=== PATIENT | female | born 1975 | race Caucasian/White ===

== ENCOUNTER 2016-12-21 00:02 | Emergency (ER) | payer MEDICAID ==
[~2016-12-21] VITALS: Ht 157.5 cm; Wt 95.0 kg
[2016-12-21 00:45] VITALS: Ht 157.5 cm; Wt 95.0 kg
[2016-12-21] MEDS ORDERED: ACET500C5 PO ×2 (01:58→03:51)
--- NOTE | 2016-12-21 01:59 | ERD ---
ER Documentation Chief Complaint Date/Time DATE: 12/21/16 TIME: 01:57 Chief Complaint Right leg pain and 21 weeks HPI 41-year-old female presents here in emergency department for complaints of right hip pain radiating to the right lower leg started today. Patient described pain as throbbing pain, 8/10 scale, is worse upon movement and walking. Patient is 21 weeks prior, 4 para 2 1. Patient denies any abdominal pain or cramping. Patient denies hematuria or dysuria. Patient denies any vaginal bleeding. Patient took Tylenol for pain with mild relief. Patient denies any fever or chills. She denies any trauma on affected area. Patient denies any swelling on the right lower leg. ROS All systems reviewed and are negative except as per history of present illness. Medications Home Meds Reported Medications Acetaminophen* (Tylophen*) Unknown Strength Capsule, PO Q8H Y for PAIN AND OR ELEVATED TEMP, #20 CAP 12/21/16 Allergies Allergies: Coded Allergies: No Known Allergy (Unverified , 12/21/16) PMhx/Soc Medical and Surgical Hx: pt denies Medical Hx, pt denies Surgical Hx FmHx Family History: No coronary disease, No diabetes, No other Physical Exam Vitals Vital Signs Date Time Temp Pulse Resp B/P Pulse Ox O2 Delivery O2 Flow Rate FiO2 12/21/16 00:45 98.3 86 18 134/62 97 Physical Exam GENERAL: The patient is well developed and appropriate for usual state of health, in no apparent distress. CHEST: Clear to auscultation bilaterally. There are no rales, wheezes or rhonchi. HEART: Regular rate and rhythm. No murmurs, clicks, rubs or gallops. No S3 or S4. ABDOMEN: Soft, nontender and nondistended. Good bowel sounds. No rebound or guarding. No gross peritonitis. No gross organomegaly or masses. No Abbasi sign or McBurney point tenderness. BACK: No midline or flank tenderness. EXTREMITIES: Tenderness on palpation on the right hip area, with limitation of movement because of the pain, no lower leg swelling noted, no edema noted on my no redness noted. Equal pulses bilaterally. Full range of motion of other joints of the body. Grossly neurovascularly intact. NEURO: Alert and oriented. Cranial nerves 2-12 intact. Motor strength in all 4 extremities with 5/5 strength. Sensation grossly intact. Normal speech and gait. SKIN: There is no apparent rash or petechia. The skin is warm and dry. HEMATOLOGIC AND LYMPHATIC: There is no evidence of excessive bruising or lymphedema. No gross cervical, axillary, or inguinal lymphadenopathy. Result Diagram: 12/21/16 01512/21/16 0150 Results 24 hrs Laboratory Tests Test 12/21/16 01:50 White Blood Count 11.110^3/ul Red Blood Count 4.1910^6/ul Hemoglobin 11.9g/dl Hematocrit 36.9% Mean Corpuscular Volume 88.1fl Mean Corpuscular Hemoglobin 28.4pg Mean Corpuscular Hemoglobin Concent 32.2g/dl Red Cell Distribution Width 13.0% Platelet Count 40702^3/UL Mean Platelet Volume 9.7fl Neutrophils % 69.7% Lymphocytes % 20.9% Monocytes % 7.2% Eosinophils % 1.4% Basophils % 0.3% Nucleated Red Blood Cells % 0.0/100WBC Neutrophils # 7.710^3/ul Lymphocytes # 2.310^3/ul Monocytes # 0.810^3/ul Eosinophils # 0.210^3/ul Basophils # 0.010^3/ul Nucleated Red Blood Cells # 0.010^3/ul Urine Color LT. YELLOW Urine Clarity CLEAR Urine pH 5.5 Urine Specific [place] 1.010 Urine Ketones NEGATIVE Urine Nitrite NEGATIVE Urine Bilirubin NEGATIVE Urine Urobilinogen 0.2 E.U./dL Urine Leukocyte Esterase 1+ Urine Microscopic RBC 0-2/HPF Urine Microscopic WBC 5-10/HPF Urine Squamous Epithelial Cells MANY Urine Bacteria MODERATE Urine Hemoglobin NEGATIVE Urine Glucose NEGATIVE% Urine Total Protein NEGATIVE Sodium Level 137mmol/L Potassium Level 4.5mmol/L Chloride Level 105mmol/L Carbon Dioxide Level 23mmol/L Anion Gap 14 Blood Urea Nitrogen 9mg/dl Creatinine 0.51mg/dl Glucose Level 122mg/dl Calcium Level 9.5mg/dl Total Bilirubin 0.2mg/dl Direct Bilirubin 0.00mg/dl Indirect Bilirubin 0.2mg/dl Aspartate Amino Transf (AST/SGOT) 25IU/L Alanine Aminotransferase (ALT/SGPT) 44IU/L Alkaline Phosphatase 123IU/L Total Protein 7.4g/dl Albumin 3.7g/dl Globulin 3.70g/dl Albumin/Globulin Ratio 1.00 Procedures/MDM Medical Decision Making: Patient's pain is most likely consistent with a hip strain, pelvic strain can be from the growing . Patient is also having urinary tract infection and will be treated. No DVT noted.. There is no suspicion for neurovascular compromise. Patient has intact sensation and circulation of the affected extremity. There is low suspicion for septic arthritis. Patient does not have any fever. X-ray of affected area not indicated since patient is and did not have any injury on affected area. Disposition: Home. Patient is given prescription for Tylenol for pain. Keflex for UTI Patient was advised to elevate the affected area and apply ice on affected area. Patient was advised that if symptoms are worse, numbness, tingling, high fever, unable to move joint, worsening symptoms, to return to emergency department immediately. Otherwise, patient is advised to follow up with the primary care doctor in 5-7 days for reevaluation of symptoms. Departure Diagnosis: Primary Impression: Pain of right leg Additional Impression: UTI (urinary tract infection) Urinary tract infection type: acute cystitis Hematuria presence: without hematuria Qualified Code: N30.00 - Acute cystitis without hematuria Condition: Stable Patient Instructions: Hip Strain, Understanding Urinary Tract Infections (UTIs) Additional Instructions: Patient is given prescription for Tylenol for pain. Keflex for UTI Patient was advised to elevate the affected area and apply ice on affected area. Patient was advised that if symptoms are worse, numbness, tingling, high fever, unable to move joint, worsening symptoms, to return to emergency department immediately. Otherwise, patient is advised to follow up with the primary care doctor in 5-7 days for reevaluation of symptoms. JEREMY HENNING NP Dec 21, 2016 01:59
--- NOTE | 2016-12-21 02:02 | RADRPT ---
PROCEDURE: US right lower extremity venous Doppler CLINICAL INDICATION: Right leg swelling TECHNIQUE: Multiple sonographic images of the right lower extremity deep venous system was obtaine d utilizing grayscale, color-flow, compressive sonography and Doppler imaging with augmentation. COMPARISON: No pertinent prior examinations were submitted for comparison. FINDINGS: There is normal compressibility and flow within the right common femoral, superficial femoral, popli teal, and peroneal veins. IMPRESSION: No sonographic evidence for deep venous thrombosis. RPTAT: HIKT .Clarke Fontaine MD, MD Date Time Electronically viewed and signed by .Clarke Fontaine MD, MD on 12/21/2016 02:02 .T/
[2016-12-21 02:14] LABS: ADD SCAN DIFF NO
[2016-12-21 02:17] LABS: BASOPHILS % 0.3 % (0.0-2.0); EOSINOPHILS # 0.2 10^3/ul (0.0-0.5); EOSINOPHILS % 1.4 % (0.0-7.0); HEMATOCRIT 36.9 % (37.0-47.0); HEMOGLOBIN 11.9 g/dl (12.0-16.0); LYMPHOCYTES # 2.3 10^3/ul (0.8-2.9); LYMPHOCYTES % 20.9 % (15.0-51.0); MEAN CORPUSCULAR HEMOGLOBIN 28.4 pg (29.0-33.0); MEAN CORPUSCULAR HGB CONC 32.2 g/dl (32.0-37.0); MEAN CORPUSCULAR VOLUME 88.1 fl (82.0-101.0); MEAN PLATELET VOLUME 9.7 fl (7.4-10.4); MONOCYTE # 0.8 10^3/ul (0.3-0.9); MONOCYTES % 7.2 % (0.0-11.0); NEUTROPHIL # 7.7 10^3/ul (1.6-7.5); NEUTROPHILS % 69.7 % (39.0-77.0); PLATELET COUNT 364 10^3/UL (140-415); RED BLOOD COUNT 4.19 10^6/ul (4.20-5.40); WHITE BLOOD COUNT 11.1 10^3/ul (4.8-10.8)
[2016-12-21 02:30] LABS: ALBUMIN 3.7 g/dl (3.3-4.9); POTASSIUM 4.5 mmol/L (3.5-5.1)
[2016-12-21 02:32] LABS: BILIRUBIN,INDIRECT 0.2 mg/dl (0-1.1); BILIRUBIN,TOTAL 0.2 mg/dl (0.2-1.3); CREATININE 0.51 mg/dl (0.44-1.00)
[2016-12-21 02:33] LABS: CALCIUM 9.5 mg/dl (8.4-10.2); TOTAL PROTEIN 7.4 g/dl (6.1-8.1)
[2016-12-21 03:22] LABS: ADD UMIC YES; URINE BILIRUBIN (Dip) NEGATIVE (NEGATIVE); URINE BLOOD (Dip) NEGATIVE (NEGATIVE); URINE COLOR LT. YELLOW (YELLOW); URINE GLUCOSE (Dip) NEGATIVE (NEGATIVE); URINE KETONES (Dip) NEGATIVE (NEGATIVE); URINE LEUKOCYTE ESTERASE (Dip) 1+ (NEGATIVE); URINE NITRITE (Dip) NEGATIVE (NEGATIVE); URINE TOTAL PROTEIN (Dip) NEGATIVE (NEGATIVE); URINE UROBILINOGEN (Dip) 0.2 E.U./dL (0.1-1.0)
[2016-12-21 03:38] LABS: BACTERIA,URINE MODERATE; SQUAMOUS EPITHELIAL CELL,UR MANY; URINE RBCS 0-2 /HPF (0)
[2016-12-21] MEDS ORDERED: CEPH-443 PO (03:51)
[2016-12-21 04:05] VITALS: BP 117/58; PULSE 82; RESP 18; TEMP 98
== END 2016-12-21 04:06 | disposition home or self-care (01) ==
LOC: FTE 00:02
DX: O99.89 Other specified diseases and conditions complicating pregnancy, childbirth and the puerperium (principal); M79.604 Pain in right leg; O23.42 Unspecified infection of urinary tract in pregnancy, second trimester; Z53.21 Procedure and treatment not carried out due to patient leaving prior to being seen by health care provider
CPT/HCPCS: 80053; 81001; 81003; 85025; 93971; Z7502

== ENCOUNTER 2017-01-01 21:00 | Emergency (ER) | payer MEDICAID ==
[~2017-01-01] VITALS: Wt 94.0 kg
[~2017-01-01 21:00] MED LIST: ACET500C5 PO; CEPH-443 PO
[2017-01-01] MEDS ORDERED: LORA-186 PO (21:41)
[2017-01-01] MEDS ORDERED: AZIT250T94 PO (21:41)
[2017-01-01] MEDS ORDERED: ACET-2047 PO (21:41)
--- NOTE | 2017-01-01 21:47 | ERD ---
ER Documentation Chief Complaint Date/Time DATE: 01/01/17 TIME: 21:44 Chief Complaint cough x 3 days. 23 weeks , cleared by ob HPI This is a 41-year-old female A1 who is 23 weeks presenting to the emergency department and was cleared by OB upstairs presenting complaining of cough and congestion for the past 3 days. Patient states he tried Robitussin-DM without any relief. She rates as moderate in severity. Denies any vomiting, diarrhea, abdominal pain, shortness of breath ROS All systems reviewed and are negative except as per history of present illness. Medications Home Meds Active Scripts Azithromycin* (Zithromax*) 250 Mg Tablet, 250 MG PO .ZPACK DIRECTED, #6 TAB TAKE 500 MG (2 TABS) THE FIRST DAY THEN 250 MG (1 TAB) DAYS 2-5 Prov:KEVIN ARAGON PA-C 01/01/17 Acetaminophen* (Acetaminophen*) 650 Mg Tablet, 650 MG PO Q6H Y for PAIN AND OR ELEVATED TEMP, #30 TAB Prov:KEVIN ARAGON PA-C 01/01/17 Loratadine* (Claritin*) 10 Mg Tablet, 10 MG PO DAILY, #30 TAB Prov:KEVIN ARAGON PA-C 01/01/17 Discontinued Reported Medications Acetaminophen* (Tylophen*) Unknown Strength Capsule, PO Q8H Y for PAIN AND OR ELEVATED TEMP, #20 CAP 12/21/16 Discontinued Scripts Cephalexin* (Keflex*) 500 Mg Capsule, 500 MG PO QID for 7 Days, CAP Prov:JEREMY HENNING NP 12/21/16 Acetaminophen* (Tylophen*) 500 Mg Capsule, 1 CAP PO Q6H Y for PAIN AND OR ELEVATED TEMP, #20 CAP Prov:JEREMY HENNING NP 12/21/16 Allergies Allergies: Coded Allergies: No Known Allergy (Unverified , 01/01/17) PMhx/Soc Hx Alcohol Use: No Hx Substance Use: No Hx Tobacco Use: No Physical Exam Vitals Vital Signs Date Time Temp Pulse Resp B/P Pulse Ox O2 Delivery O2 Flow Rate FiO2 01/01/17 21:08 99.1 80 20 141/71 99 Physical Exam GENERAL: well-developed/well-nourished, in no apparent distress, non-toxic appearing HEAD: NC/AT, no swelling noted in frontal or maxillary areas EARS: bilateral tympanic membrane is intact without erythema or effusion NARES: rhinorrhea and congested THROAT: oropharynx nonerythematous without exudates, no tonsil enlargement, post nasal drip EYES: Conjunctiva normal NECK: Supple, no lymphadenopathy PULM: CTA bilaterally, no rales, rhonchi, or wheezing heard CV: Normal S1S2, RRR, good capillary refill GI: Soft, non-distended, normal bowel sounds, non-tender BACK: No midline tenderness, no masses EXT No clubbing, cyanosis, or edema NEURO: Alert and Orientated SKIN: Intact, normal turgor PSYCH: Normal mood and mentation Procedures/MDM This is a A1 41-year-old female presenting to the emergency department who is 23 weeks who was cleared by OB complaining of cough and congestion for the past 3 days. This is likely a viral upper respiratory infection. There was no evidence of pneumonia, strep pharyngitis, otitis media. Patient's lungs are clear all station bilaterally. Patient had a concern for the baby and wanted to get treated for possible pneumonia, I have discussed with her that this is likely a viral upper respiratory infection however I have given her a prescription for Z-Michel and I have told her to take it if she gets any worse tomorrow. A prescription for Claritin, Z-Michel, Tylenol was provided. Discussed return to the ER for any worsening symptoms. She understands and agrees with this plan Departure Diagnosis: Primary Impression: URI (upper respiratory infection) Condition: Stable Patient Instructions: Preventing Common Respiratory Infections, Uri, Viral, No Abx (Adult) Additional Instructions: FOLLOW UP WITH YOUR PRIMARY CARE PHYSICIAN TOMORROW.Return to this facility if you are not improving as expected. Take all medicines as directed. Return to this facility if you are not improving as expected. KEVIN ARAGON PA-C Jan 01, 2017 21:46
== END 2017-01-01 21:42 | disposition home or self-care (01) ==
LOC: E/R 21:00
DX: O99.512 Diseases of the respiratory system complicating pregnancy, second trimester (principal); J06.9 Acute upper respiratory infection, unspecified; Z3A.23 23 weeks gestation of pregnancy
CPT/HCPCS: 99283

== ENCOUNTER 2017-03-26 18:11 | Outpatient (CLI) | payer MEDICAID ==
--- NOTE | 2017-01-02 06:27 | PN ---
Date/Time of Note Date/Time of Note DATE: 01/02/17 TIME: 06:23 OB Subjective Subjective Subjective 41 Year-old with SIUP at 23 1/7 weks presents with a chief complaint of cough, chest and ear pain for 5 days. She has been receiving her care with Randy. She states good movement. She denies nausea, vomiting, shortness of breath, and abdominal pain between contractions, headache, visual changes, vaginal bleeding or LOF. OB Objective Objective Objective General: Patient appears well, alert and oriented, NAD, appropriate mood and affect ABD: gravid, soft, non-tender. Back: No CVA tenderness (B/L) LE: No clubbing, cyanosis, edema, thigh or calf tenderness bilaterally FHT: 140 bpm , moderate variability with acceleration, no deceleration-category I Contractions: None OB Assessment/Plan Other plan: 41 Year-old with SIUP at 23 1/7 weks with URTI - FHR: No sign of metabolic acidosis- Category I - Continuous EFM, toco - Contractions: None. - Reactive NST. - Symptoms and sign of labor, preeclampsia, kick count discussed with patient, she voiced understanding. All of her questions answered. - Patient was transfered to ER for furthe evaluation. Then I would like patient to have close follow-up with her primary physician or outpatient clinic in 1-2 days or return to the ER for worsening symptoms or any other urgent concerns. PATRICIA SMITH Jan 02, 2017 06:27
[~2017-03-26] VITALS: Ht 157.5 cm; Wt 98.6 kg
[~2017-03-26 18:11] MED LIST changes: +ACET-2047 PO; -ACET500C5 PO; +AZIT250T94 PO; -CEPH-443 PO; +LORA-186 PO
[2017-03-26 18:29] VITALS: Ht 157.5 cm; Wt 98.6 kg
[2017-03-26 18:30] VITALS: BP 138/71; PULSE 82; RESP 20
[2017-03-26 18:48] LABS: ADD UMIC YES; UR ASCORBIC ACID NEGATIVE (NEGATIVE); UR BACTERIA FEW /HPF (NONE SEEN); UR BILIRUBIN (Dip) NEGATIVE (NEGATIVE); UR BLOOD (Dip) NEGATIVE (NEGATIVE); UR CLARITY CLEAR (CLEAR); UR COLOR YELLOW (YELLOW); UR GLUCOSE (Dip) NEGATIVE (NEGATIVE); UR KETONES (Dip) NEGATIVE (NEGATIVE); UR LEUKOCYTE ESTERASE (Dip) 2+ Leu/ul (NEGATIVE); UR NITRITE (Dip) NEGATIVE (NEGATIVE); UR RBC 1 /HPF (0-5); UR SPECIFIC GRAVITY (Dip) 1.012 (1.003-1.030); UR SQUAMOUS EPITHELIAL CELL FEW /HPF (FEW); UR TOTAL PROTEIN (Dip) NEGATIVE (NEGATIVE); UR UROBILINOGEN (Dip) NEGATIVE (NEGATIVE)
[2017-03-26 19:22] LABS: ADD SCAN DIFF NO
[2017-03-26 19:23] LABS: BASOPHILS % 0.3 % (0.0-2.0); EOSINOPHILS # 0.1 10^3/ul (0.0-0.5); EOSINOPHILS % 1.8 % (0.0-7.0); HEMATOCRIT 32.8 % (37.0-47.0); HEMOGLOBIN 11.2 g/dl (12.0-16.0); LYMPHOCYTES % 27.1 % (15.0-51.0); MEAN CORPUSCULAR HEMOGLOBIN 28.4 pg (29.0-33.0); MEAN CORPUSCULAR HGB CONC 34.1 g/dl (32.0-37.0); MEAN CORPUSCULAR VOLUME 83.2 fl (82.0-101.0); MEAN PLATELET VOLUME 10.3 fl (7.4-10.4); MONOCYTE # 0.7 10^3/ul (0.3-0.9); MONOCYTES % 9.4 % (0.0-11.0); NEUTROPHIL # 4.4 10^3/ul (1.6-7.5); PLATELET COUNT 294 10^3/UL (140-415); RED BLOOD COUNT 3.94 10^6/ul (4.20-5.40); RED CELL DISTRIBUTION WIDTH 14.8 % (11.5-14.5); WHITE BLOOD COUNT 7.3 10^3/ul (4.8-10.8)
--- NOTE | 2017-03-26 19:31 | RADRPT ---
PROCEDURE: US OB biophysical profile. CLINICAL INDICATION: evaluation TECHNIQUE: Multiple sonographic images of the pelvis were obtained. The images were reviewed on a PACS workstation. COMPARISON: No prior studies are available for comparison. FINDINGS: There is a single viable intrauterine gestation. Cardiac activity is present with 168 beats per min sherrie. There is a vertex presentation. The placenta is posterior. There is no evidence of placental abruption. There is a normal amount of amniotic fluid with an VICTORINO = 14.6 cm. Biophysical profile: movement 2/2 tone 2/2. breathing 2/2 VICTORINO 2/2 Total 04/24 RPTAT: AA . IMPRESSION: Normal biophysical profile. Normal VICTORINO. Physician Naa Date Time Electronically viewed and signed by Physician Naa on 03/26/2017 19:31 /
--- NOTE | 2017-03-26 19:31 | RADRPT ---
PROCEDURE: Obstetrical ultrasound CLINICAL INDICATION: LABOR, pain TECHNIQUE: Multiple sonographic images of the pelvis were obtained. The images were reviewed on a PACS workstation. COMPARISON: None FINDINGS: The cervix is not well visualized. There is a single viable intrauterine gestation. Cardiac activity is present with 139 beats per minute. There is a vertex presentation. The placenta is posterior. There is no evidence for an abruption or placenta previa. There is a subjectively normal amount of amniotic fluid. Measurements were made in order to determine age. The results are as follows (cm): BPD =8.52 HC =31.61 AC =33.73 FL =6.86 Estimated gestational age by ultrasound of approximately 35 weeks, 5 days. The estimated date of delivery by ultrasound is 04/25/2017. Estimated gestational age by LMP of approximately 35 weeks, 2 days. The estimated date of delivery by LMP is 04/28/2017. EFW = 2935 grams (79th percentile) IMPRESSION: Single viable intrauterine gestation of approximately 35 weeks, 5 days . The estimated date of delivery is 04/25/2017 . Dating by ultrasound is within 3 days of dating by LMP. Cephalic presentation. Posterior placenta without abruption or placenta previa. Estimated weight is in the 79th percentile. RPTAT: EE Physician Naa Date Time Electronically viewed and signed by Physician Naa on 03/26/2017 19:31 /
[2017-03-26 19:40] LABS: INR 0.99; PROTIME 13.1 Sec (12.2-14.2)
[2017-03-26 19:44] LABS: ALBUMIN 3.8 g/dl (3.3-4.9); ALBUMIN/GLOBULIN RATIO 1.15; BILIRUBIN,INDIRECT 0.1 mg/dl (0-1.1); BILIRUBIN,TOTAL 0.1 mg/dl (0.2-1.3); CALCIUM 9.3 mg/dl (8.4-10.2); CREATININE 0.71 mg/dl (0.44-1.00); POTASSIUM 3.8 mmol/L (3.5-5.1); TOTAL PROTEIN 7.1 g/dl (6.1-8.1); URIC ACID 5.7 mg/dl (3.1-7.9)
--- NOTE | 2017-03-26 22:20 | TRIAGE ---
OB Triage Datetime Report Generated by CPN: 03/26/2017 22:20 Datetime: 03/26/2017 21:00 Labor Evaluation Frequency: IRREGULAR Monitor Mode: External Duration (sec)2399: 60 Quality: Mild Pattern: Normal: <= 5 Contractions in 10 Minutes Resting Tone [place]: Relaxed Heart Rate FHR Baseline Rate: 125 Monitor Mode: External US FHR Baseline Changes: No Baseline Change Variability: Moderate 6-25 bpm Accelerations: 15X15 Decelerations: None Category: Category I Datetime: 03/26/2017 20:18 Vaginal Exam Dilatation (cms): 0.0 Effacement (%): 0 Station: -3 Exam By: Karen SOTO RN Vaginal Bleeding: None Cervix, Consistency: Firm Cervix, Position: Posterior Datetime: 03/26/2017 19:40 Labor Evaluation Frequency: 0 Monitor Mode: External Heart Rate FHR Baseline Rate: 135 Monitor Mode: External US FHR Baseline Changes: No Baseline Change Variability: Moderate 6-25 bpm Accelerations: 15X15 Decelerations: None Category: Category I Datetime: 03/26/2017 19:39 Assessment Type: Triage Maternal Assessment Level of Consciousness: Fully Conscious DTR's/Clonus: DTRs 2+; No Clonus Headache: Denies Blurred Vision: No Respiratory Effort: Unlabored; Regular Rhythm; Equal Expansion Nausea/Vomiting: Denies RUQ Epigastric Pain: Denies Lower Extremities Edema: Bilateral Lower Extremities Degree: Pitting Upper Extremities Edema: Bilateral Upper Extremities Degree: None Facial Edema: None Fall Risk Assessment History of Falling: (0) No Secondary Diagnosis: (0) No Ambulatory Aid: (0) Bedrest/Nurse Assist IV Therapy: (0) No Gait: (0) Normal/Bedrest/Immobile Mental Status: (0) Oriented to Own Ability Fall Score: 0 Fall Risk Score Definition: No Risk: No action required Datetime: 03/26/2017 19:38 Pain Assessment Pain Scale: 6 Pain Presence: Intermittent Pain Location: Abdomen; Back Datetime: 03/26/2017 18:30 Stage of : OB Triage Assessment Type: Triage Maternal Assessment Level of Consciousness: Fully Conscious DTR's/Clonus: DTRs 2+; No Clonus Headache: Denies Blurred Vision: No Respiratory Effort: Unlabored; Regular Rhythm; Equal Expansion Nausea/Vomiting: Denies RUQ Epigastric Pain: Denies Lower Extremities Edema: Bilateral Lower Extremities Degree: Pitting Upper Extremities Edema: Bilateral Upper Extremities Degree: None Facial Edema: None Fall Risk Assessment History of Falling: (0) No Secondary Diagnosis: (0) No Ambulatory Aid: (0) Bedrest/Nurse Assist IV Therapy: (0) No Gait: (0) Normal/Bedrest/Immobile Mental Status: (0) Oriented to Own Ability Fall Score: 0 Fall Risk Score Definition: No Risk: No action required Monitor Mode: External Monitor Mode: External US Pain Assessment Pain Scale: 6 Pain Presence: Intermittent Pain Type: Cramping; Pressure Pain Location: Abdomen; Back; Perineum Pain Goal: 0 Datetime: 03/26/2017 18:25 Time of Arrival: 03/26/2017 18:05 EGA: 35.2 Arrived By: Ambulatory Arrived From: Office Chief Complaint: VAGINAL PRESSURE, LOW BACK AND LOW ABDOMINAL PAIN Movement: Present Contractions: Irregular Rupture of Membranes: Denies Vaginal Bleeding: None Vaginal Discharge: Denies Recent Sexual Intercouse: Denies Abdominal Trauma: Not Applicable Patient Complaints: Contractions Time Provider Notified: 03/26/2017 18:47 Provider Notified: DR. HUNT Initial Plan: EFM, UA, CBC Datetime: 01/01/2017 20:44 Heart Rate FHR Baseline Rate: 135 Monitor Mode: External US FHR Baseline Changes: No Baseline Change Variability: Moderate 6-25 bpm Datetime: 01/01/2017 20:00 Stage of : OB Triage Datetime: 01/01/2017 19:19 Maternal Assessment Level of Consciousness: Fully Conscious Headache: Denies Blurred Vision: No Respiratory Effort: Unlabored Nausea/Vomiting: Denies RUQ Epigastric Pain: Denies Facial Edema: None Monitor Mode: External Resting Tone [place]: Relaxed Monitor Mode: External US Comments: FHT 150 Pain Assessment Pain Scale: 4 Pain Presence: Constant Pain Type: Ache Datetime: 01/01/2017 19:15 EGA: 23.2
== END 2017-03-26 21:14 | disposition home or self-care (01) ==
LOC: L-D 18:11 → OBT 18:11
PROVIDERS: ATTEND Obstetrics & Gynecology
DX: O26.892 Other specified pregnancy related conditions, second trimester (principal); R05 Cough; R07.9 Chest pain, unspecified; H92.09 Otalgia, unspecified ear; O09.522 Supervision of elderly multigravida, second trimester; Z3A.23 23 weeks gestation of pregnancy
CPT/HCPCS: 76815; 76818; 80053; 81001; 84560; 85025; 85610; 85730; Z7500; G0463

== ENCOUNTER 2017-03-30 21:48 | Inpatient (IN) | payer MEDICAID ==
[~2017-03-30] VITALS: Ht 157.5 cm; Wt 99.4 kg
[2017-03-30 22:38] LABS: ADD SCAN DIFF NO
[2017-03-30 22:39] LABS: BASOPHILS % 0.3 % (0.0-2.0); EOSINOPHILS # 0.1 10^3/ul (0.0-0.5); EOSINOPHILS % 0.7 % (0.0-7.0); HEMATOCRIT 35.7 % (37.0-47.0); LYMPHOCYTES # 1.3 10^3/ul (0.8-2.9); LYMPHOCYTES % 14.8 % (15.0-51.0); MEAN CORPUSCULAR HEMOGLOBIN 28.2 pg (29.0-33.0); MEAN CORPUSCULAR HGB CONC 33.6 g/dl (32.0-37.0); MEAN PLATELET VOLUME 10.1 fl (7.4-10.4); MONOCYTE # 0.9 10^3/ul (0.3-0.9); MONOCYTES % 9.5 % (0.0-11.0); NEUTROPHIL # 6.7 10^3/ul (1.6-7.5); NEUTROPHILS % 74.1 % (39.0-77.0); PLATELET COUNT 207 10^3/UL (140-415); RED BLOOD COUNT 4.25 10^6/ul (4.20-5.40); RED CELL DISTRIBUTION WIDTH 14.7 % (11.5-14.5); WHITE BLOOD COUNT 9.1 10^3/ul (4.8-10.8)
--- NOTE | 2017-03-30 22:49 | RADRPT ---
PROCEDURE: US biophysical profile. CLINICAL INDICATION: Decreased motion. TECHNIQUE: Multiple sonographic images of the uterus were obtained. The images were revi ewed on a PACS workstation. COMPARISON: No prior studies are available for comparison. FINDINGS: There is a single live intrauterine gestation. heart rate is 141 beats per minute. The position is cephalic. The placenta is posterior grade II with no abruption or previa. The VICTORINO is 9.1 cm. (Normal = 5-20 cm.) Breathing Movement: 2 Gross Body Movement: 2 Tone: 2 Qualitative Amniotic Fluid Volume: 2 TOTAL: 8 IMPRESSION: 1. The biophysical score is 8/8. RPTAT: QQ .Valdo Owens MD, MD Date Time Electronically viewed and signed by .Valdo Owens MD, on 03/30/2017 22:49 .R/
[2017-03-30 22:56] LABS: ADD UMIC YES; UR ASCORBIC ACID NEGATIVE (NEGATIVE); UR BACTERIA FEW /HPF (NONE SEEN); UR BILIRUBIN (Dip) NEGATIVE (NEGATIVE); UR BLOOD (Dip) 1+ mg/dL (NEGATIVE); UR CLARITY CLEAR (CLEAR); UR COLOR STRAW (YELLOW); UR GLUCOSE (Dip) NEGATIVE (NEGATIVE); UR KETONES (Dip) NEGATIVE (NEGATIVE); UR LEUKOCYTE ESTERASE (Dip) 3+ Leu/ul (NEGATIVE); UR NITRITE (Dip) NEGATIVE (NEGATIVE); UR RBC 3 /HPF (0-5); UR SPECIFIC GRAVITY (Dip) 1.005 (1.003-1.030); UR SQUAMOUS EPITHELIAL CELL FEW /HPF (FEW); UR TOTAL PROTEIN (Dip) NEGATIVE (NEGATIVE); UR UROBILINOGEN (Dip) NEGATIVE (NEGATIVE)
[2017-03-30 22:58] LABS: INR 0.99; PROTIME 13.1 Sec (12.2-14.2)
[2017-03-30 22:59] LABS: PARTIAL THROMBOPLASTIN TIME 39.4 Sec (25.0-35.0)
[2017-03-30 23:06] LABS: ALBUMIN 3.8 g/dl (3.3-4.9); ALBUMIN/GLOBULIN RATIO 1.11; BILIRUBIN,INDIRECT 0.3 mg/dl (0-1.1); BILIRUBIN,TOTAL 0.3 mg/dl (0.2-1.3); CALCIUM 9.2 mg/dl (8.4-10.2); CREATININE 0.65 mg/dl (0.44-1.00); POTASSIUM 4.1 mmol/L (3.5-5.1); TOTAL PROTEIN 7.2 g/dl (6.1-8.1)
[2017-03-31 00:38] VITALS: BP 160/78; PULSE 83; RESP 18
[2017-03-31] MEDS ORDERED: ACETAMINOPHEN 325 MG TAB PO PRN (01:00)
--- NOTE | 2017-03-31 01:07 | TRIAGE ---
OB Triage Datetime Report Generated by CPN: 03/31/2017 01:06 Datetime: 03/31/2017 00:29 Vaginal Exam Membrane Status: Intact Datetime: 03/30/2017 22:30 Labor Evaluation Frequency: 0 Monitor Mode: External Resting Tone [place]: Relaxed Heart Rate FHR Baseline Rate: 140 Monitor Mode: External US Variability: Moderate 6-25 bpm Accelerations: 15X15 Decelerations: None Category: Category I Pain Assessment Pain Scale: 6 Pain Presence: Chronic Pain Type: Pressure; Ache Pain Location: Other Pain Goal: 0 Pain Assessment Comments: EPIGASTRIC AND SOME VAGINAL PAIN Datetime: 03/30/2017 22:01 Monitor Mode: External Contraction Comments: APPLIED Monitor Mode: External US Comments: APPLIED Datetime: 03/30/2017 22:00 Assessment Type: Triage Time of Arrival: 03/30/2017 21:51 EGA: 35.6 Arrived By: Wheelchair Arrived From: Home Movement: Present Rupture of Membranes: Denies Vaginal Discharge: Denies Recent Sexual Intercouse: Denies Abdominal Trauma: Not Applicable Patient Complaints: Epigastric Pain; Shortness of Breath Time Provider Notified: 03/30/2017 22:00 Provider Notified: Shamsian Initial Plan: R/O Preeclampsia: dx tests: PIH Labs, U/S BPP Maternal Assessment Level of Consciousness: Fully Conscious DTR's/Clonus: DTRs 2+; No Clonus Headache: Denies Blurred Vision: No Nausea/Vomiting: Denies RUQ Epigastric Pain: Denies Facial Edema: None Fall Risk Assessment History of Falling: (0) No Secondary Diagnosis: (0) No Ambulatory Aid: (0) Bedrest/Nurse Assist IV Therapy: (0) No Gait: (0) Normal/Bedrest/Immobile Mental Status: (0) Oriented to Own Ability Fall Score: 0 Fall Risk Score Definition: No Risk: No action required Datetime: 03/26/2017 20:56 Stage of : OB Triage Datetime: 03/26/2017 20:12 Labor Evaluation Frequency: 0 Monitor Mode: External Heart Rate FHR Baseline Rate: 135 Monitor Mode: External US FHR Baseline Changes: No Baseline Change Variability: Moderate 6-25 bpm Accelerations: 15X15 Decelerations: None Category: Category I Datetime: 03/26/2017 19:39 Fall Score: 0 Fall Risk Score Definition: No Risk: No action required Datetime: 03/26/2017 18:30 Fall Score: 0 Fall Risk Score Definition: No Risk: No action required Datetime: 03/26/2017 18:25 EGA: 35.2 Datetime: 01/01/2017 19:15 EGA: 23.2
[2017-03-31] MEDS: AL HYDROX/MG HYDROX/SIMETH 30 ML CUP PO PRN ×2 (01:26→10:17)
--- NOTE | 2017-03-31 07:17 | RADRPT ---
PROCEDURE: Abdominal ultrasound, limited. CLINICAL INDICATION: Abdominal pain. TECHNIQUE: Multiple real-time images were acquired of the patient's right upper abdomen utilizing a high resolution transducer. COMPARISON: None FINDINGS: The liver demonstrates normal echogenicity and size measuring 15.9 cm. There is no focal mass or in trahepatic biliary ductal dilatation. The portal vein is patent. The gallbladder is not distended. No gallstones are identified. There is no pericholecystic fluid or gallbladder wall thickening. The common bile duct measures 4.7 mm in maximal dimension. The visualized portions of the pancreas are unremarkable. No free fluid is identified. The right kidney is normal size and echogenicity measuring 10.8 cm. There is no focal renal mass or echogenic calculus identified. There is mild right-sided hydronephrosis. IMPRESSION: Mild right-sided hydronephrosis. .Ja Fernandez MD, MD Date Time Electronically viewed and signed by .Ja Fernandez MD, MD on 03/31/2017 07:17 .T/
[2017-03-31 07:33] LABS: ADD SCAN DIFF NO
[2017-03-31 07:39] LABS: BASOPHILS % 0.2 % (0.0-2.0); EOSINOPHILS # 0.1 10^3/ul (0.0-0.5); EOSINOPHILS % 0.8 % (0.0-7.0); HEMATOCRIT 35.4 % (37.0-47.0); HEMOGLOBIN 11.7 g/dl (12.0-16.0); LYMPHOCYTES # 1.5 10^3/ul (0.8-2.9); LYMPHOCYTES % 17.5 % (15.0-51.0); MEAN CORPUSCULAR HEMOGLOBIN 27.7 pg (29.0-33.0); MEAN CORPUSCULAR HGB CONC 33.1 g/dl (32.0-37.0); MEAN CORPUSCULAR VOLUME 83.7 fl (82.0-101.0); MEAN PLATELET VOLUME 10.3 fl (7.4-10.4); MONOCYTE # 0.8 10^3/ul (0.3-0.9); MONOCYTES % 8.7 % (0.0-11.0); NEUTROPHIL # 6.3 10^3/ul (1.6-7.5); NEUTROPHILS % 72.6 % (39.0-77.0); PLATELET COUNT 201 10^3/UL (140-415); RED BLOOD COUNT 4.23 10^6/ul (4.20-5.40); WHITE BLOOD COUNT 8.6 10^3/ul (4.8-10.8)
[2017-03-31 07:58] LABS: ALBUMIN 3.8 g/dl (3.3-4.9); ALBUMIN/GLOBULIN RATIO 1.18; BILIRUBIN,INDIRECT 0.5 mg/dl (0-1.1); BILIRUBIN,TOTAL 0.5 mg/dl (0.2-1.3); CALCIUM 8.9 mg/dl (8.4-10.2); CREATININE 0.57 mg/dl (0.44-1.00); POTASSIUM 4.1 mmol/L (3.5-5.1); URIC ACID 5.3 mg/dl (3.1-7.9)
[2017-03-31] MEDS ORDERED: PRENATAL VITAMIN PO SCH (09:00)
[2017-03-31] MEDS ORDERED: LACTATED RINGER'S 1,000 ML IV ONE (12:45)
[2017-03-31 12:50] LABS: ADD SCAN DIFF NO
[2017-03-31 12:52] LABS: BASOPHILS % 0.4 % (0.0-2.0); EOSINOPHILS # 0.1 10^3/ul (0.0-0.5); HEMATOCRIT 35.7 % (37.0-47.0); HEMOGLOBIN 11.8 g/dl (12.0-16.0); LYMPHOCYTES # 1.4 10^3/ul (0.8-2.9); LYMPHOCYTES % 16.9 % (15.0-51.0); MEAN CORPUSCULAR HEMOGLOBIN 27.3 pg (29.0-33.0); MEAN CORPUSCULAR HGB CONC 33.1 g/dl (32.0-37.0); MEAN CORPUSCULAR VOLUME 82.6 fl (82.0-101.0); MEAN PLATELET VOLUME 10.2 fl (7.4-10.4); MONOCYTE # 0.8 10^3/ul (0.3-0.9); NEUTROPHIL # 5.9 10^3/ul (1.6-7.5); NEUTROPHILS % 71.2 % (39.0-77.0); PLATELET COUNT 187 10^3/UL (140-415); RED BLOOD COUNT 4.32 10^6/ul (4.20-5.40); RED CELL DISTRIBUTION WIDTH 15.5 % (11.5-14.5); WHITE BLOOD COUNT 8.2 10^3/ul (4.8-10.8)
[2017-03-31] MEDS ORDERED: CEFAZOLIN 2 GM/50 ML (PMX) 50 ML IV SCH (13:00)
[2017-03-31] MEDS ORDERED: CARBOPROST 250 MCG INJ IM PRN ×2 (13:00→21:00)
[2017-03-31] MEDS ORDERED: MISOPROSTOL 200 MCG TAB PR PRN ×2 (13:00→21:00)
[2017-03-31] MEDS ORDERED: OXYTOCIN 30 UNITS/LR 500 ML IV SCH (13:00)
[2017-03-31] MEDS ORDERED: METHYLERGONOVINE 0.2 MG INJ IM PRN ×2 (13:00→21:00)
[2017-03-31] MEDS ORDERED: OXYTOCIN 30 UNITS/LR 500 ML IV PRN ×2 (13:00→21:00)
[2017-03-31 13:17] LABS: INR 0.99; PROTIME 13.1 Sec (12.2-14.2)
[2017-03-31 13:18] LABS: PARTIAL THROMBOPLASTIN TIME 42.1 Sec (25.0-35.0)
[2017-03-31 13:25] LABS: ALBUMIN 3.8 g/dl (3.3-4.9); ALBUMIN/GLOBULIN RATIO 1.05; BILIRUBIN,INDIRECT 0.5 mg/dl (0-1.1); BILIRUBIN,TOTAL 0.5 mg/dl (0.2-1.3); CALCIUM 9.1 mg/dl (8.4-10.2); CREATININE 0.53 mg/dl (0.44-1.00); POTASSIUM 4.1 mmol/L (3.5-5.1); TOTAL PROTEIN 7.4 g/dl (6.1-8.1)
[2017-03-31] MEDS: LACTATED RINGER'S 1,000 ML IV SCH ×2 (13:46→23:00)
[2017-03-31] MEDS ORDERED: OXYTOCIN 30 UNITS/LR 500 ML IV ONE (14:56)
[2017-03-31] MEDS ORDERED: EPHEDrine SULFATE 50 MG/5 ML SYG ONE (14:56)
[2017-03-31] MEDS ORDERED: OXYTOCIN 10 UNIT INJ ONE (14:56)
[2017-03-31] MEDS ORDERED: METOCLOPRAMIDE 10 MG INJ ONE (14:56)
[2017-03-31] MEDS ORDERED: ONDANSETRON 4 MG INJ ONE (14:56)
[2017-03-31] MEDS ORDERED: morphine SULFATE/PF (10 MG/10 ML) INJ ONE (14:56)
[2017-03-31] MEDS ORDERED: PRENAT PO (15:45)
[2017-03-31] MEDS ORDERED: NALOXONE (0.4 MG/ML) INJ IV PRN (16:30)
[2017-03-31] MEDS ORDERED: EPHEDrine SULFATE 50 MG/5 ML SYG IV PRN (16:30)
[2017-03-31] MEDS ORDERED: morphine SULFATE/PF (10 MG/10 ML) INJ SPINAL ONE (16:30)
[2017-03-31] MEDS ORDERED: HYDROmorphONE 1 MG/ML SYG IV PRN ×2 (16:30)
[2017-03-31] MEDS ORDERED: ONDANSETRON 4 MG INJ IV PRN (16:30)
[2017-03-31] MEDS ORDERED: morphine 2 MG INJ IV PRN ×2 (16:30)
[2017-03-31] MEDS ORDERED: KETOROLAC 30 MG INJ IV PRN (16:30)
[2017-03-31] MEDS ORDERED: DIPHENHYDRAMINE 50 MG INJ IV PRN (16:30)
--- NOTE | 2017-03-31 16:36 | HP ---
Date/Time of Note Date/Time of Note DATE: 03/31/17 TIME: 16:19 OB - History Hx of Present Free Text/Dictation 41 years old 4 para history of previous with 1 admitted at 36 weeks gestation to [facility] due to symptoms of -induced hypertension including but not limited to headache, epigastric pain, blurry vision, 2-3+ ankle edema; she was first admitted on March 30 to antepartum unit prior developing the neurological symptoms then she was transferred to the delivery room, due to the previous section and request for tubal ligation and declined trial of labor being prepared for repeat bilateral tubal ligation. This patient has been under the care of [facility] and her course been complicated with gestational diabetes diet-controlled ,and recently with -induced hypertension . perinatology consult today recommended delivery. Chief Complaint: 36 weeks complicated with PIH and gestational diabetes with histo Estimated Due Date: Apr 28, 2017 : 4 Para: 2 Spontaneous : 1 Care: Limited Care Ultrasounds: Normal mid trimester US Obstetrical Complications: Gestational Diabetes, Pre-eclampsia Medical Complications: None Past Family/Social History * Past Medical, Surgical, Family and Obstetric Histories reviewed from chart. Rubella: immune RPR/VDRL: Negative GBS Status: Negative HBsAG: Unknown OB Admission Exam Vital Signs Vital Signs Vital Signs Date Time Temp Pulse Resp B/P Pulse Ox O2 Delivery O2 Flow Rate FiO2 03/31/17 00:38 98.5 83 18 160/78 Room Air Physical Exam HEENT: WNL Heart: Rhythm Normal Lungs: Clear, Equal Abdomen: WNL Extremities: Edema Reflexes: Hyperreflexia Present Cervical Dilatation: None Station: -3 Membranes: Intact Heart Rate: 130's Accelerations: Accelerations Present Decelerations: No Decelerations Varibility: Moderate Contractions on Admission: None Last 72 hours Lab Results CBC & BMP 03/30/17 22:25 03/31/17 06:37 03/31/17 12:30 Liver Function Test 03/30/17 22:25 03/31/17 06:37 03/31/17 12:30 Alanine Aminotransferase (ALT/SGPT) 71 H 72 H 76 H Albumin 3.8 3.8 3.8 Alkaline Phosphatase 147 H 142 H 152 H Aspartate Amino Transf (AST/SGOT) 68 H 69 H 72 H Direct Bilirubin 0.00 0.00 0.00 Total Protein 7.2 7.0 7.4 OB Assessment/Plan Reason for admission: other (36 weeks complicated with PIH gestational diabetes history of previous request for bilateral tubal ligation at the time of section) Plan: Section, Other (Repeat bilateral tubal ligation) ECHO FORD MD Mar 31, 2017 16:29
--- NOTE | 2017-03-31 17:33 | OPR ---
Operative Report Planned Procedure Free Text/Dictation 41 years old 36 weeks her is complicated with gestational diabetes -induced hypertension with neurological symptoms history of previous request for bilateral tubal ligation, declined trial of labor complication of the including but not limited to bowel and bladder injury wound infection and hematoma has been extensively discussed with the patient she would like to proceed with the and bilateral tubal ligation knowing the facts that tubal ligation has failure rate with increased risk of ectopic also future failure to conceive . Procedure date Mar 31, 2017 Procedure(s) Repeat bilateral tubal ligation Performed by: ECHO FORD MD Assisting provider: MARITZA SMITH Anesthesiologist: AGUSTO ESTEVEZ MD Pre-procedure diagnosis 36 weeks complicated with gestational diabetes ,PIH ,previous C- section request for tubal ligation declined trial of labor Anesthesia Type: spinal Procedure Description Under satisfactory spinal anesthesia, the patient was prepped and draped and placed in a supine position, tilted to the left. Pfannenstiel incision was made , carried through the subcutaneous tissue. Bleeders brought under control with electrocautery. Fascia incised to the length of the incision. Rectus muscles from the fascia, divided in midline. Peritoneum exposed, entered through a transverse incision. Exploration of abdomen revealed gravid uterus normal-appearing tubes and ovaries bladder flap was developed. Transverse incision was made in the lower segment of the uterus. Amniotic sac ruptured. Clear amniotic fluid noted. Light baby boy was delivered from unengaged vertex with nuchal cord 1 nasal oropharyngeal suction was performed. baby handed to the team for immediate attention. placenta was delivered manually intact inspected complete, sent to pathology , uterine cavity cleaned with wet sponge and drainage established. Uterus closed in 2 layers using Monocryl #1 in continuous fashion. Peritoneal cavity irrigated with warm saline. Sponge, needle and instrument count reported to be correct. Abdominal peritoneum closed with [2-0 chromic catgut] continuously. Rectus muscle approximated with interrupted 2-0 chromic catgut []. Fascia closed with [#1 PDS] , subcutaneous tissue approximated with several interrupted 2-0 chromic catgut skin closed with coby. Estimated blood loss [6]mL. Urine bag contained [200] mL of clear urine patient tolerated procedure transferred to recovery room in good condition Post-Procedure Findings: Live Baby boy, Apgars [9] and [9], weight [2550], position [LOP], presentation vertex [] Complications: None Pt Condition post procedure: stable Physician Certification I, the undersigned physician, hereby certify that I have discussed the procedure described in this consent form with this patient (or the patient's legal product support representative), including: * The risk and benefits of the procedure; * Any adverse reactions that may reasonably be expected to occur; * Any alternative efficacious methods of treatment which may be medically viable ; * The potential problems that may occur during recuperation; * Potential for blood transfusion and associated risks/benefits; and * Any research or economic interest I may have regarding this treatment. I further certify that the patient/legally responsible person was encouraged to ask question and that all questions were answered. ECHO FORD MD Mar 31, 2017 17:32
[2017-03-31 20:25] VITALS: BP 140/63; PULSE 65; RESP 19
[2017-03-31 21:00] VITALS: BP 136/62; PULSE 65; RESP 17
[2017-03-31] MEDS ORDERED: CEFAZOLIN 1 GM/50 ML (PMX) 50 ML IVPB SCH (21:00)
[2017-03-31] MEDS ORDERED: ACETAMINOPHEN/CODEINE #3 TAB PO PRN ×2 (21:00)
[2017-03-31] MEDS ORDERED: OXYCODONE/ACETAMINOPHEN (5/325) TAB PO PRN (21:00)
[2017-03-31] MEDS ORDERED: LANOLIN 7 GM TUBE TOP PRN (21:00)
[2017-03-31] MEDS: OXYTOCIN 30 UNITS/LR 500 ML IV SCH (21:31)
[2017-03-31] MEDS: SENNA/DOCUSATE NA (8.6MG/50MG) TAB PO SCH (21:32)
[2017-03-31 22:00] VITALS: BP 140/67; PULSE 68; RESP 18
[2017-03-31 23:00] VITALS: BP 125/60; PULSE 66; RESP 18
[2017-04-01] VITALS (7 sets, daily range): BP systolic 103–128; BP diastolic 55–63; PULSE 69–86; RESP 17–19
[2017-04-01] MEDS: OXYTOCIN 30 UNITS/LR 500 ML IV SCH ×5 (03:28→16:59)
[2017-04-01] MEDS: IBUPROFEN 600 MG TAB PO SCH ×5 (06:00→23:37)
[2017-04-01] MEDS: LACTATED RINGER'S 1,000 ML IV SCH ×2 (07:00→15:00)
[2017-04-01 08:28] LABS: ADD SCAN DIFF NO
[2017-04-01 08:37] LABS: BASOPHILS % 0.3 % (0.0-2.0); EOSINOPHILS % 0.4 % (0.0-7.0); HEMATOCRIT 31.2 % (37.0-47.0); HEMOGLOBIN 10.4 g/dl (12.0-16.0); LYMPHOCYTES # 1.3 10^3/ul (0.8-2.9); LYMPHOCYTES % 13.7 % (15.0-51.0); MEAN CORPUSCULAR HEMOGLOBIN 27.7 pg (29.0-33.0); MEAN CORPUSCULAR HGB CONC 33.3 g/dl (32.0-37.0); MEAN CORPUSCULAR VOLUME 83.2 fl (82.0-101.0); MEAN PLATELET VOLUME 10.5 fl (7.4-10.4); MONOCYTE # 0.6 10^3/ul (0.3-0.9); MONOCYTES % 6.2 % (0.0-11.0); NEUTROPHIL # 7.5 10^3/ul (1.6-7.5); NEUTROPHILS % 78.7 % (39.0-77.0); PLATELET COUNT 142 10^3/UL (140-415); RED BLOOD COUNT 3.75 10^6/ul (4.20-5.40); RED CELL DISTRIBUTION WIDTH 15.4 % (11.5-14.5); WHITE BLOOD COUNT 9.6 10^3/ul (4.8-10.8)
[2017-04-01] MEDS: SENNA/DOCUSATE NA (8.6MG/50MG) TAB PO SCH ×2 (11:07→21:23)
[2017-04-01] MEDS ORDERED: IBUPROFEN 600 MG TAB PO SCH (18:00)
[2017-04-01] MEDS: OXYCODONE/ACETAMINOPHEN (5/325) TAB PO PRN (21:24)
[2017-04-02 04:10] VITALS: BP 100/58; PULSE 69; RESP 17
[2017-04-02] MEDS: IBUPROFEN 600 MG TAB PO SCH ×3 (05:21→17:42)
[2017-04-02 07:40] VITALS: BP 97/65; PULSE 102; RESP 20
[2017-04-02] MEDS: SENNA/DOCUSATE NA (8.6MG/50MG) TAB PO SCH ×2 (09:49→21:07)
[2017-04-02 16:08] VITALS: BP 119/56; PULSE 97; RESP 20
--- NOTE | 2017-04-02 18:01 | QN ---
Documentation Comment Post date Vital signs stable, afebrile abdomen soft incision dry good bowel sounds had bowel movement plan of a.m. discharge discussed ECHO FORD MD Apr 02, 2017 18:01
[2017-04-02 20:00] VITALS: BP 114/56; PULSE 85; RESP 18
[2017-04-03] MEDS: IBUPROFEN 600 MG TAB PO SCH ×4 (00:23→18:08)
[2017-04-03 04:00] VITALS: BP 124/59; PULSE 89; RESP 18
[2017-04-03 08:25] VITALS: BP 133/73; PULSE 81; RESP 16
[2017-04-03] MEDS: SENNA/DOCUSATE NA (8.6MG/50MG) TAB PO SCH ×2 (08:25→20:44)
[2017-04-03] MEDS: OXYCODONE/ACETAMINOPHEN (5/325) TAB PO PRN (08:25)
[2017-04-03] MEDS ORDERED: DIPHTH/TET/ACEL PERTUSS (ADULT) 0.5 ML VIAL IM* ONE (09:00)
--- NOTE | 2017-04-03 10:52 | DS ---
Date/Time of Note Date/Time of Note DATE: 04/03/17 TIME: 10:47 Obstetrical Discharge Record Final Diagnosis Final Diagnosis: Term delivered Section Section: Repeat Primary Indication She had repeat C Section plus BTL. Complications Augmentation: Yes Condition on Discharge Physical Assessment Last Vitals: Post C section day 3 Doing Well Afebrile Ambulatory Chest Clear Breasts are soft , Nipples are intact Abdomen is soft Fundus is firm Moderate amount of lochia Incision is clean ,No evidence of infection No calf tenderness No ankle edema New born is doing well, Breast feeding Current Medications Medications (Trade) Dose Ordered Sig/Jayleen Route PRN Reason Start Time Stop Time Status Last Admin Dose Admin Prenat Multivit/ Heavy Truck Mechanic/Iron/Folic Ac () 1 tab DAILY PO 03/31/17 09:00 03/31/17 21:05 DC 03/31/17 08:51 Acetaminophen (Tylenol Tab) 650 mg Q4H PRN PO PAIN AND OR ELEVATED TEMP 03/31/17 01:00 03/31/17 21:05 DC 03/31/17 01:27 Al Hydrox/Mg Hydrox/ Simethicone 30 ml 30 ml Q6H PRN PO GASTROINTESTINAL UPSET 03/31/17 01:00 03/31/17 21:05 DC 03/31/17 10:17 Cefazolin Sodium/ Dextrose 50 ml @ 100 mls/hr ONCE IV 03/31/17 13:00 03/31/17 21:05 DC Oxytocin/Lactated Ringer's 500 ml @ 125 mls/hr ONCE IV 03/31/17 13:00 03/31/17 21:05 DC 03/31/17 16:41 Oxytocin/Lactated Ringer's 500 ml @ 0 mls/hr ONCE PRN IV For Hemorrhage Management 03/31/17 13:00 03/31/17 21:05 DC Methylergonovine Maleate (Methergine) 0.2 mg ONCE PRN IM VAGINAL BLEEDING 03/31/17 13:00 Carboprost Tromethamine (Hemabate) 250 mcg ONCE PRN IM VAGINAL BLEEDING 03/31/17 13:00 03/31/17 21:05 DC Misoprostol 1000 mcg 1,000 mcg ONCE PRN NC VAGINAL BLEEDING 03/31/17 13:00 Lactated Ringer's 1,000 ml @ 125 mls/hr Q8H IV 03/31/17 15:00 04/01/17 20:27 DC 03/31/17 13:46 Lactated Ringer's (Lr) 1,000 ml @ 1,000 mls/hr Q1H ONCE IV 03/31/17 12:45 03/31/17 13:44 DC 03/31/17 12:53 Ephedrine Sulfate 50 mg 50 mg STK-MED ONCE .ROUTE 03/31/17 14:56 03/31/17 14:57 DC Oxytocin/Lactated Ringer's 500 ml @ ud STK-MED ONCE IV 03/31/17 14:56 03/31/17 14:57 DC Ondansetron HCl (Zofran Inj) 4 mg STK-MED ONCE .ROUTE 03/31/17 14:56 03/31/17 14:57 DC Metoclopramide HCl (Reglan) 10 mg STK-MED ONCE .ROUTE 03/31/17 14:56 03/31/17 14:57 DC Oxytocin (Oxytocin) 10 units STK-MED ONCE .ROUTE 03/31/17 14:56 03/31/17 14:57 DC Morphine Sulfate (Duramorph) 10 mg STK-MED ONCE .ROUTE 03/31/17 14:56 03/31/17 14:57 DC Naloxone HCl (Narcan) 0.1 mg Q2M PRN IV FOR RESP RATE 8 OR LESS 03/31/17 16:30 04/01/17 16:29 DC Ketorolac Tromethamine (Toradol) 30 mg Q6H PRN IV PAIN 03/31/17 16:30 04/01/17 16:29 DC 04/01/17 14:13 Morphine Sulfate (morphine) 2 mg Q3H PRN IV PAIN LEVEL 1-5 03/31/17 16:30 04/01/17 16:29 DC Morphine Sulfate (morphine) 4 mg Q3H PRN IV PAIN LEVEL 6-10 03/31/17 16:30 04/01/17 16:29 DC Hydromorphone HCl (Dilaudid) 0.2 mg Q3H PRN IV PAIN LEVEL 1-5 03/31/17 16:30 04/01/17 16:29 DC Hydromorphone HCl (Dilaudid) 0.4 mg Q3H PRN IV PAIN LEVEL 6-10 03/31/17 16:30 04/01/17 16:29 DC Diphenhydramine HCl (Benadryl) 25 mg Q6H PRN IV ITCHING 03/31/17 16:30 04/01/17 16:29 DC Ondansetron HCl (Zofran Inj) 4 mg Q6H PRN IV NAUSEA AND/OR VOMITING 03/31/17 16:30 04/01/17 16:29 DC 03/31/17 17:54 Morphine Sulfate (Duramorph) 0.3 mg GIVEN ANESTH ONCE SPINAL 03/31/17 16:30 03/31/17 16:31 DC Ephedrine Sulfate 5 mg [id number] PRN IV BLOOD PRESSURE SUPPORT 03/31/17 16:30 03/31/17 21:05 DC Acetaminophen/ Codeine Phosphate (Tylenol No.3) 1 tab Q4H PRN PO PAIN LEVEL 4-6 03/31/17 21:00 Acetaminophen/ Codeine Phosphate (Tylenol No.3) 2 tab Q4H PRN PO PAIN LEVEL 7-10 03/31/17 21:00 Oxycodone/ Acetaminophen (Percocet (5/ 325)) 1 tab Q4H PRN PO PAIN LEVEL 4-6 03/31/17 21:00 Oxycodone/ Acetaminophen (Percocet (5/ 325)) 2 tab Q4H PRN PO PAIN LEVEL 7-10 03/31/17 21:00 04/03/17 08:25 Ibuprofen (Motrin) 600 mg Q6 PO 04/01/17 18:00 UNV Simethicone (Mylicon) 160 mg Q8H PRN PO DISTENSION/GAS/BLOATING 03/31/17 21:00 04/03/17 00:25 Senna/Docusate Sodium (Senokot-S) 1 tab BID PO 03/31/17 21:00 04/03/17 08:25 Lanolin (Wnw-B-Vloyef) 1 applic BEDSIDE MEDICATION PRN TOP BEDSIDE FOR ISIDRO TO NIPPLES 03/31/17 21:00 04/01/17 03:29 Diphtheria/ Tetanus/Acell Pertussis 0.5 ml 0.5 ml ONCE ONCE IM* 04/03/17 09:00 04/03/17 09:01 DC Oxytocin/Lactated Ringer's 500 ml @ 0 mls/hr ONCE PRN IV For Hemorrhage Management 03/31/17 21:00 Methylergonovine Maleate (Methergine) 0.2 mg ONCE PRN IM VAGINAL BLEEDING 03/31/17 21:00 Carboprost Tromethamine (Hemabate) 250 mcg ONCE PRN IM VAGINAL BLEEDING 03/31/17 21:00 Misoprostol 1000 mcg 1,000 mcg ONCE PRN NC VAGINAL BLEEDING 03/31/17 21:00 Cefazolin Sodium 50 ml @ 100 mls/hr ONCE IVPB 03/31/17 21:00 03/31/17 21:29 DC 03/31/17 21:32 Oxytocin/Lactated Ringer's 500 ml @ 125 mls/hr Q4H IV 03/31/17 20:59 04/01/17 20:29 DC 04/01/17 11:10 Ibuprofen (Motrin) 600 mg Q6 PO 04/01/17 00:00 04/03/17 06:44 Breast: Soft, non-tender Fundus: Firm Calf Tenderness: No Patient Condition: Good RAFFAELE PARKINSON MD Apr 03, 2017 10:52
[2017-04-03 16:00] VITALS: BP 119/63; PULSE 87
[2017-04-03 19:45] VITALS: BP 139/63; PULSE 88; RESP 18
[2017-04-04] MEDS: IBUPROFEN 600 MG TAB PO SCH ×3 (00:16→11:36)
[2017-04-04 03:30] VITALS: BP 100/58; PULSE 69; RESP 18
[2017-04-04 05:45] VITALS: BP 138/62; PULSE 89; RESP 18
[2017-04-04 08:15] VITALS: BP 111/56; PULSE 74; RESP 18
[2017-04-04] MEDS: SENNA/DOCUSATE NA (8.6MG/50MG) TAB PO SCH (09:48)
== END 2017-04-04 17:30 | disposition home or self-care (01) | DRG 765 ==
LOC: OBT 21:48 → L-D 21:48 → OBT 03-31 00:35 → OBG 03-31 00:36 → L-D 03-31 12:35 → PP1 03-31 20:23
PROVIDERS: ADMIT Obstetrics & Gynecology; ATTEND Obstetrics & Gynecology
PROC: 0UL70ZZ Occlusion of Bilateral Fallopian Tubes, Open Approach (ICD-10-PCS; 2017-03-31)
PROC: 10D00Z1 Extraction of Products of Conception, Low, Open Approach (ICD-10-PCS; principal; 2017-03-31 15:30)
DX: O34.211 Maternal care for low transverse scar from previous cesarean delivery (principal); O60.14X0 Preterm labor third trimester with preterm delivery third trimester, not applicable or unspecified; Z68.41 Body mass index [BMI] 40.0-44.9, adult; O10.92 Unspecified pre-existing hypertension complicating childbirth; Z30.2 Encounter for sterilization; O99.214 Obesity complicating childbirth; E66.01 Morbid (severe) obesity due to excess calories; O24.419 Gestational diabetes mellitus in pregnancy, unspecified control; Z3A.36 36 weeks gestation of pregnancy; Z37.0 Single live birth
CPT/HCPCS: 36415; 76705; 76818; 80053; 81001; 84560; 85025; 85384; 85610; 85730; 86592; 86850; 86900; 86901; 88302; 88307; 90715; 94760; 99464; G0463; J0690; J1885; J2274; J2405; J2590; J2765; J7120

== ENCOUNTER 2017-04-14 21:06 | Emergency (ER) | payer MEDICAID ==
[~2017-04-14] VITALS: Ht 154.9 cm; Wt 90.0 kg
[~2017-04-14 21:06] MED LIST changes: -ACET-2047 PO; -AZIT250T94 PO; -LORA-186 PO; +PRENAT PO
[2017-04-14 21:08] VITALS: Ht 154.9 cm; Wt 90.0 kg
--- NOTE | 2017-04-14 22:15 | ERD ---
ER Documentation Chief Complaint Date/Time DATE: 04/14/17 TIME: 22:03 Chief Complaint s/p c section 2 weeks ago, surgical site noted drainage HPI 41-year-old female presents here in emergency department for a wound evaluation , patient had a section done 2 weeks ago, the coby were removed 1 week ago, Steri-Strips will be are in place. Patient noted some discharge coming from the area and once to be checked. Patient denies any pain. Patient denies any fever or chills. Patient denies any discharge coming from the area. ROS All systems reviewed and are negative except as per history of present illness. Medications Home Meds Reported Medications Multivit/Min/Fol Ac/Iron/Pren* ( S*) 1 Tab Tab, 1 TAB PO DAILY, TAB 03/31/17 Allergies Allergies: Coded Allergies: No Known Allergy (Unverified , 03/31/17) PMhx/Soc Medical and Surgical Hx: pt denies Medical Hx, pt denies Surgical Hx History of Surgery: No Anesthesia Reaction: No Hx Neurological Disorder: No Hx Respiratory Disorders: No Hx Cardiac Disorders: No Hx Psychiatric Problems: No Hx Miscellaneous Medical Probl: No Hx Alcohol Use: No Hx Substance Use: No Hx Tobacco Use: No Smoking Status: Never smoker FmHx Family History: No coronary disease, No diabetes, No other Physical Exam Vitals Vital Signs Date Time Temp Pulse Resp B/P Pulse Ox O2 Delivery O2 Flow Rate FiO2 04/14/17 21:08 98.6 100 18 120/77 98 Physical Exam GENERAL: The patient is well developed and appropriate for usual state of health, in no apparent distress. CHEST: Clear to auscultation bilaterally. There are no rales, wheezes or rhonchi. HEART: Regular rate and rhythm. No murmurs, clicks, rubs or gallops. No S3 or S4. ABDOMEN: Soft, nontender and nondistended. Good bowel sounds. No rebound or guarding. No gross peritonitis. No gross organomegaly or masses. No Abbasi sign or McBurney point tenderness. BACK: No midline or flank tenderness. EXTREMITIES: Equal pulses bilaterally. There is no peripheral clubbing, cyanosis or edema. No focal swelling or erythema. Full range of motion. Grossly neurovascularly intact. NEURO: Alert and oriented. Cranial nerves 2-12 intact. Motor strength in all 4 extremities with 5/5 strength. Sensation grossly intact. Normal speech and gait. SKIN: Noted section wound healing well, no discharge, no gaping of the wound, no redness or swelling. There is no apparent ecchymosis or petechia. The skin is warm and dry. HEMATOLOGIC AND LYMPHATIC: There is no evidence of excessive bruising or lymphedema. No gross cervical, axillary, or inguinal lymphadenopathy. Procedures/MDM Medical decision making: Patient's wound is healing well, no symptoms of any infection. The Steri-Strips were removed, no gaping of the wound. Patient was advised to continue medications given, was advised to return to emergency department for any symptoms of infection. Patient was advised to PRIMARY care doctor in 2-3 days for reevaluation of symptoms. Disposition: Home. Stable. Departure Diagnosis: Primary Impression: Encounter for postoperative wound check Condition: Stable Patient Instructions: Post Op Wound Check, General JEREMY HENNING NP Apr 14, 2017 22:13
== END 2017-04-14 22:00 | disposition home or self-care (01) ==
LOC: FTE 21:06
DX: O90.0 Disruption of cesarean delivery wound (principal); Z48.01 Encounter for change or removal of surgical wound dressing
CPT/HCPCS: 99281